=== PATIENT | male | born 1960 | race Caucasian/White ===

== ENCOUNTER 2018-02-17 07:03 | Emergency (ER) | payer BC ==
--- NOTE | 2018-02-17 07:42 | EDM.PDOC ---
ED HPI GENERAL MEDICAL PROBLEM - General Chief Complaint: Lower Extremity Injury/Pain Stated Complaint: RIGHT HAND PAIN Time Seen by Provider: 02/17/18 07:04 Source of Information: Reports: Patient History Limitations: Reports: No Limitations - History of Present Illness INITIAL COMMENTS - FREE TEXT/NARRATIVE: History of present illness: []Patient has chronic history of right hand pain that has been radiating up to her shoulder for the past week. He's not been able to raise her shoulder secondary to the pain Earlier this week and an MRI of his right wrist and is being followed by . Patient denies any new injury, chest pain, shortness of breath, dizziness, fevers or chills Review of systems: As per history of present illness and below otherwise all systems reviewed and negative. Past medical history: As per history of present illness and as reviewed below otherwise noncontributory. Surgical history: As per history of present illness and as reviewed below otherwise noncontributory. Social history: No reported history of drug or alcohol abuse. Family history: As per history of present illness and as reviewed below otherwise noncontributory. Physical exam: General: Well developed, well nourished in NAD HEENT: Atraumatic, normocephalic, pupils reactive, negative for conjunctival pallor or scleral icterus, mucous membranes moist, throat clear, neck supple, nontender, trachea midline. Lungs: Clear to auscultation, breath sounds equal bilaterally, chest nontender. Heart: S1S2, regular, negative for clicks, rubs, or JVD. Abdomen: Soft, nondistended, nontender. Negative for masses or hepatosplenomegaly. Negative for costovertebral tenderness. Pelvis: Stable nontender. Genitourinary: Deferred. Rectal: Deferred. Extremities: Atraumatic, large palpable masses on his right dorsal hand distal to his wrist, negative for cords or calf pain. Neurovascular unremarkable. Neuro: Awake, alert, oriented. Cranial nerves II through XII unremarkable. Cerebellum unremarkable. Motor and sensory unremarkable throughout. Exam nonfocal. 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 Zimmerman for further workup and evaluation. Definitive disposition and diagnosis as appropriate pending reevaluation and review of above. right hand/elbow and shoulder pain Pain Score (Numeric/FACES): 6 - Related Data Allergies Allergy/AdvReac Type Severity Reaction Status Date / Time No Known Allergies Allergy Verified 02/17/18 07:13 Past Medical History Cardiovascular History: Reports: Afib, Hypertension Gastrointestinal History: Reports: GERD Musculoskeletal History: Reports: RA - Infectious Disease History Infectious Disease History: Reports: Chicken Pox, MRSA - Past Surgical History Musculoskeletal Surgical History: Reports: Knee Replacement Social & Family History - Family History Family Medical History: Noncontributory - Tobacco Use Years of Tobacco use: 8 Packs/Tins Daily: 0.5 - Caffeine Use Caffeine Use: Reports: Coffee - Recreational Drug Use Recreational Drug Use: No Review of Systems - Review of Systems Review Of Systems: See Below (See history of present illness) ED EXAM, GENERAL - Physical Exam Exam: See Below (See history of present illness) Course - Vital Signs Last Recorded V/S: Last Vital Signs Temp 97.5 F 02/17/18 07:14 Pulse 100 02/17/18 07:14 Resp 16 02/17/18 07:14 BP 125/87 02/17/18 07:14 Pulse Ox 97 02/17/18 07:14 - Orders/Labs/Meds Orders: Active Orders 24 hr Category Date Time Status Splinting [RC] ASDIRECTED Care 02/17/18 07:49 Ordered Meds: Medications Discontinued Medications Generic Name Dose Route Start Last Admin Trade Name Freq PRN Reason Stop Dose Admin Oxycodone/Acetaminophen 1 tab 02/17/18 07:48 Percocet 325-10 Mg PO 02/17/18 07:49 ONETIME ONE Departure - Departure Time of Disposition: 07:50 Disposition: Home, Self-Care 01 Condition: Good Clinical Impression: Right wrist pain - Discharge Information Referrals: PCP,None [Primary Care Provider] - Caroline Zimmerman MD [Physician] - (Next available appointment) Forms: ED Department Discharge Additional Instructions: The following information is given to patients seen in the emergency department who are being discharged to home. This information is to outline your options for follow-up care. We provide all patients seen in our emergency department with a follow-up referral. The need for follow-up, as well as the timing and circumstances, are variable depending upon the specifics of your emergency department visit. If you don't have a primary care physician on staff, we will provide you with a referral. We always advise you to contact your personal physician following an emergency department visit to inform them of the circumstance of the visit and for follow-up with them and/or the need for any referrals to a consulting specialist. The emergency department will also refer you to a specialist when appropriate. This referral assures that you have the opportunity for follow-up care with a specialist. All of these measure are taken in an effort to provide you with optimal care, which includes your follow-up. Under all circumstances we always encourage you to contact your private physician who remains a resource for coordinating your care. When calling for follow-up care, please make the office aware that this follow-up is from your recent emergency room visit. If for any reason you are refused follow-up, please contact the [facility] Emergency Department at and asked to speak to the emergency department charge nurse. [facility] [address] [place] [phone] - My Orders Last 24 Hours: My Active Orders 02/17/18 07:49 Splinting [RC] ASDIRECTED - Assessment/Plan Last 24 Hours: My Active Orders 02/17/18 07:49 Splinting [RC] ASDIRECTED
[2018-02-17] MEDS ORDERED: Acetaminophen/oxyCODONE 325-10 MG Tab PO ONE (07:48)
--- NOTE | 2018-02-17 08:40 | CR ---
EXAMINATION: Right shoulder HISTORY: Pain COMPARISON: None TECHNIQUE: 3 views FINDINGS/IMPRESSION: There is no acute osseous abnormality, dislocation, or fracture. Moderate acromi oclavicular osteoarthritic changes. Glenohumeral joint space is preserved.
== END 2018-02-17 08:54 | disposition home or self-care (01) ==
LOC: MW.ED 07:03
DX: M25.531 Pain in right wrist (principal); I10 Essential (primary) hypertension
CPT/HCPCS: 73030-26-RT; 73030-RT; 99283

== ENCOUNTER 2022-01-31 15:55 | Inpatient (IN) | payer BC ==
[2022-01-31] MEDS ORDERED: Albuterol/Ipratropium 3.0-0.5 MG/3 ML Neb Soln NEB ONE ×2 (16:04→16:45)
[2022-01-31 17:00] LABS: CARBON DIOXIDE,CO2 31.4 mmol/L (21.0-32.0); POTASSIUM,K 4.8 mmol/L (3.5-5.1)
[2022-01-31 17:09] LABS: CORONAVIRUS COVID-19 NAA NEGATIVE (NEGATIVE); INFLUENZA A NAA NEGATIVE (NEGATIVE); INFLUENZA B NAA NEGATIVE (NEGATIVE)
[2022-01-31] MEDS ORDERED: cefTRIAXone 1 GM in Sodium Chloride 0.9% 50 ML IV ONE (17:48)
[2022-01-31] MEDS ORDERED: methylPREDNISolone Sodium Succinate 125 MG/2 ML SDV IVPUSH ONE (17:48)
[2022-02-01] MEDS: Albuterol/Ipratropium 3.0-0.5 MG/3 ML Neb Soln NEB SCH ×5 (00:20→23:45)
[2022-02-01 06:44] LABS: CARBON DIOXIDE,CO2 28.8 mmol/L (21.0-32.0); POTASSIUM,K 4.2 mmol/L (3.5-5.1)
[2022-02-01] MEDS: Rivaroxaban 10 MG Tab PO SCH (09:09)
[2022-02-01] MEDS: Digoxin 250 MCG Tab PO SCH (09:10)
[2022-02-01] MEDS: Metoprolol Succinate 100 MG Tab.ER PO SCH (09:10)
[2022-02-01] MEDS: methylPREDNISolone Sodium Succinate 40 MG/1 ML SDV IVPUSH SCH (10:32)
[2022-02-01] MEDS: cefTRIAXone 1 GM in Sodium Chloride 0.9% 50 ML IV SCH (10:36)
[2022-02-01] MEDS ORDERED: Lidocaine 2% 5 ML SDV ONE (11:07)
[2022-02-01] MEDS ORDERED: 50% Dextrose in Water 50 ML Syringe IVPUSH PRN (13:16)
[2022-02-01] MEDS ORDERED: Glucagon,Human Recombinant 1 MG Vial IM PRN (13:16)
[2022-02-01] MEDS: Insulin Aspart 100 Units/ML 3 ML Pen SUBCUT SCH (17:07)
[2022-02-01] MEDS ORDERED: SULFASALAZINE 500 MG PO SCH ×2 (23:15)
[2022-02-01] MEDS ORDERED: Azithromycin 500 MG Vial IV SCH (23:45)
[2022-02-02] MEDS ORDERED: Azithromycin 500 MG in Sodium Chloride 0.9% 250 ML IV SCH ×2
[2022-02-02] MEDS: cefTRIAXone 1 GM in Sodium Chloride 0.9% 50 ML IV SCH ×4 (00:50→23:21)
[2022-02-02] MEDS: Azithromycin 500 MG in Sodium Chloride 0.9% 250 ML IV SCH (06:09)
[2022-02-02] MEDS: Albuterol/Ipratropium 3.0-0.5 MG/3 ML Neb Soln NEB SCH ×4 (06:25→23:21)
[2022-02-02] MEDS: Insulin Aspart 100 Units/ML 3 ML Pen SUBCUT SCH ×3 (07:29→19:27)
[2022-02-02] MEDS ORDERED: Torsemide 20 MG Tab PO SCH (09:00)
[2022-02-02] MEDS ORDERED: sulfaSALAzine 500 MG Tab PO SCH (09:00)
[2022-02-02] MEDS: Hydroxychloroquine 200 MG Tab PO SCH (09:58)
[2022-02-02] MEDS: Rivaroxaban 10 MG Tab PO SCH (09:59)
[2022-02-02] MEDS: Metoprolol Succinate 100 MG Tab.ER PO SCH (10:00)
[2022-02-02] MEDS: SULFASALAZINE 500 MG PO SCH (10:00)
[2022-02-02] MEDS: methylPREDNISolone Sodium Succinate 40 MG/1 ML SDV IVPUSH SCH (10:00)
[2022-02-02] MEDS: Digoxin 250 MCG Tab PO SCH (10:00)
[2022-02-02 11:37] LABS: CARBON DIOXIDE,CO2 31.5 mmol/L (21.0-32.0); POTASSIUM,K 5.2 mmol/L (3.5-5.1)
[2022-02-02] MEDS ORDERED: cefTRIAXone 1 GM AdvVial IV ONE (12:11)
[2022-02-03] MEDS: Azithromycin 500 MG in Sodium Chloride 0.9% 250 ML IV SCH (02:24)
[2022-02-03 06:34] LABS: BLOOD UREA NITROGEN,BUN 49 mg/dL (7.0-18.0); CARBON DIOXIDE,CO2 34.5 mmol/L (21.0-32.0); CHLORIDE,CL 101 mmol/L (98-107); GLUCOSE RANDOM 103 mg/dL (74-106); POTASSIUM,K 4.9 mmol/L (3.5-5.1); SODIUM,NA 136 mmol/L (136-148)
[2022-02-03] MEDS: Insulin Aspart 100 Units/ML 3 ML Pen SUBCUT SCH (07:46)
[2022-02-03] MEDS ORDERED: sulfaSALAzine 500 MG Tab PO SCH (09:30)
[2022-02-03] MEDS ORDERED: Spironolactone 25 MG Tab PO SCH (09:30)
[2022-02-03] MEDS: Metoprolol Succinate 100 MG Tab.ER PO SCH (09:50)
[2022-02-03] MEDS: Digoxin 250 MCG Tab PO SCH (09:50)
[2022-02-03] MEDS: Rivaroxaban 10 MG Tab PO SCH (09:50)
[2022-02-03] MEDS: Hydroxychloroquine 200 MG Tab PO SCH (09:51)
[2022-02-03] MEDS: methylPREDNISolone Sodium Succinate 40 MG/1 ML SDV IVPUSH SCH (09:51)
[2022-02-03] MEDS: Albuterol/Ipratropium 3.0-0.5 MG/3 ML Neb Soln NEB SCH ×4 (09:52→23:00)
[2022-02-03] MEDS: SULFASALAZINE 500 MG PO SCH (09:53)
[2022-02-03] MEDS: Losartan 50 MG Tab PO SCH (10:09)
[2022-02-03] MEDS: Fluticasone/Salmeterol 250-50 MCG Inhalation Powder 14/Diskus INH SCH ×2 (10:10→20:48)
[2022-02-03] MEDS: Folic Acid 1 MG Tab PO SCH (10:10)
[2022-02-03] MEDS: cefTRIAXone 1 GM in Sodium Chloride 0.9% 50 ML IV SCH ×2 (11:27→22:59)
[2022-02-03] MEDS ORDERED: Furosemide 20 MG/2 ML VIAL IVPUSH ONE (14:00)
[2022-02-04] MEDS: Azithromycin 500 MG in Sodium Chloride 0.9% 250 ML IV SCH (02:02)
[2022-02-04] MEDS: Levothyroxine 50 MCG Tab PO SCH (06:33)
[2022-02-04 06:57] LABS: BLOOD UREA NITROGEN,BUN 37 mg/dL (7.0-18.0); CARBON DIOXIDE,CO2 37.8 mmol/L (21.0-32.0); CHLORIDE,CL 102 mmol/L (98-107); GLUCOSE RANDOM 103 mg/dL (74-106); POTASSIUM,K 5.2 mmol/L (3.5-5.1); SODIUM,NA 137 mmol/L (136-148)
[2022-02-04] MEDS ORDERED: Furosemide 20 MG/2 ML VIAL IVPUSH ONE (09:34)
[2022-02-04] MEDS: methylPREDNISolone Sodium Succinate 40 MG/1 ML SDV IVPUSH SCH (09:51)
[2022-02-04] MEDS: Folic Acid 1 MG Tab PO SCH (09:52)
[2022-02-04] MEDS: Rivaroxaban 10 MG Tab PO SCH (09:52)
[2022-02-04] MEDS: Omeprazole 20 MG Cap.CR PO SCH (09:53)
[2022-02-04] MEDS: Hydroxychloroquine 200 MG Tab PO SCH (09:53)
[2022-02-04] MEDS: Albuterol/Ipratropium 3.0-0.5 MG/3 ML Neb Soln NEB SCH ×5 (09:54→23:50)
[2022-02-04] MEDS: SULFASALAZINE 500 MG PO SCH (09:54)
[2022-02-04] MEDS: Fluticasone/Salmeterol 250-50 MCG Inhalation Powder 14/Diskus INH SCH ×2 (09:54→21:36)
[2022-02-04] MEDS: Phosphorus #1 250 MG Tab PO SCH ×4 (09:55→23:51)
[2022-02-04] MEDS: Digoxin 250 MCG Tab PO SCH (10:00)
[2022-02-04] MEDS: Metoprolol Succinate 100 MG Tab.ER PO SCH (10:00)
[2022-02-04] MEDS: Losartan 50 MG Tab PO SCH (10:01)
[2022-02-04] MEDS: cefTRIAXone 1 GM in Sodium Chloride 0.9% 50 ML IV SCH ×2 (11:44→23:51)
[2022-02-05] MEDS: Azithromycin 500 MG in Sodium Chloride 0.9% 250 ML IV SCH (01:51)
[2022-02-05] MEDS: Albuterol/Ipratropium 3.0-0.5 MG/3 ML Neb Soln NEB SCH (06:25)
[2022-02-05] MEDS: Phosphorus #1 250 MG Tab PO SCH (06:25)
[2022-02-05] MEDS: Levothyroxine 50 MCG Tab PO SCH (06:30)
[2022-02-05 07:36] LABS: BLOOD UREA NITROGEN,BUN 25 mg/dL (7.0-18.0); CARBON DIOXIDE,CO2 37.4 mmol/L (21.0-32.0); CHLORIDE,CL 102 mmol/L (98-107); GLUCOSE RANDOM 83 mg/dL (74-106); POTASSIUM,K 4.4 mmol/L (3.5-5.1); SODIUM,NA 143 mmol/L (136-148)
[2022-02-05 08:07] LABS: BORDETELLA PARAPERT IS1001 Not Detected (Not Detected)
[2022-02-05] MEDS: methylPREDNISolone Sodium Succinate 40 MG/1 ML SDV IVPUSH SCH (08:44)
[2022-02-05] MEDS: Fluticasone/Salmeterol 250-50 MCG Inhalation Powder 14/Diskus INH SCH (08:48)
[2022-02-05] MEDS: Digoxin 250 MCG Tab PO SCH (08:49)
[2022-02-05] MEDS: Rivaroxaban 10 MG Tab PO SCH (08:51)
[2022-02-05] MEDS: Omeprazole 20 MG Cap.CR PO SCH (08:51)
[2022-02-05] MEDS: Losartan 50 MG Tab PO SCH (08:52)
[2022-02-05] MEDS: Metoprolol Succinate 100 MG Tab.ER PO SCH (08:52)
[2022-02-05] MEDS: Folic Acid 1 MG Tab PO SCH (08:52)
[2022-02-05] MEDS: SULFASALAZINE 500 MG PO SCH (08:53)
[2022-02-05] MEDS ORDERED: Hydroxychloroquine 200 MG Tab PO SCH (09:00)
== END 2022-02-05 12:00 | disposition home or self-care (01) | DRG 133 ==
LOC: MW.ED 15:55 → MW.MS 17:53 → OBSVTOIN 02-02 19:57 → MW.MS 02-03 03:00
PROVIDERS: ADMIT Internal Medicine; ATTEND Internal Medicine
DX: J96.01 Acute respiratory failure with hypoxia (principal); J44.1 Chronic obstructive pulmonary disease with (acute) exacerbation; I48.91 Unspecified atrial fibrillation; F10.11 Alcohol abuse, in remission; I50.9 Heart failure, unspecified; E03.9 Hypothyroidism, unspecified; E78.00 Pure hypercholesterolemia, unspecified; I42.9 Cardiomyopathy, unspecified; I49.9 Cardiac arrhythmia, unspecified; I11.0 Hypertensive heart disease with heart failure; K21.9 Gastro-esophageal reflux disease without esophagitis; E66.9 Obesity, unspecified; Z96.652 Presence of left artificial knee joint; Z87.891 Personal history of nicotine dependence; Z95.0 Presence of cardiac pacemaker; Z87.01 Personal history of pneumonia (recurrent); Z86.19 Personal history of other infectious and parasitic diseases; Z79.899 Other long term (current) drug therapy; Z20.822 Contact with and (suspected) exposure to COVID-19; R91.8 Other nonspecific abnormal finding of lung field; J84.9 Interstitial pulmonary disease, unspecified; Z68.28 Body mass index [BMI] 28.0-28.9, adult
CPT/HCPCS: 0240U; 36415; 71046; 71046-26; 71250; 71250-26; 80048; 80053; 82947; 83520; 83605; 83735; 83880; 84100; 84484; 85025; 85027; 86038; 86200; 86256; 86431; 87040; 87070; 87102; 87205; 87486; 87581; 87633; 87798; 93005; 93010; 94640; 96365; 96375; 99284; 99285-25; A9270-GY; J0456; J0696; J1940; J2920; J2930; J7050; J7620-GY